=== PATIENT | female | born 1990 | race African-American/Black ===

== ENCOUNTER 2018-03-07 11:01 | Emergency (ER) | payer OTHER ==
[2018-03-07 11:13] VITALS: RESP 18
[2018-03-07] MEDS ORDERED: SODIUM CHLORIDE 0.9% 1,000 ML IV STA (11:36)
[2018-03-07] MEDS ORDERED: METOCLOPRAMIDE 5 MG/ML 2 ML VIAL IVP STA (11:36)
[2018-03-07] MEDS ORDERED: ACETAMINOPHEN TAB 500 MG TAB PO STA (11:36)
--- NOTE | 2018-03-07 11:45 | ED ---
Abdominal Pain HPI - General Chief Complaint: Abdominal Pain Stated Complaint: ABDOMINAL PAIN, Time Seen by Provider: 03/07/18 11:27 Source: patient Mode of arrival: ambulatory Limitations: no limitations - History of Present Illness Initial Comments: 27-year-old female patient presents to the emergency department today for evaluation of abdominal pain. Patient states that she is having pain that radiates from her midepigastric region down to her suprapubic region. States she's also been having sharp pains in her right upper quadrant. States tat she has lower back pain. States that she has been nauseated but has not vomited. Denies any constipation or diarrhea. Patient states that she did take a test at home and was positive. 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 Patient denies any abnormal vaginal bleeding or discharge. States that she felt feverish at work today. Denies any hematuria, dysuria, urinary frequency, urinary urgency. Patient denies any recent rash, shortness breath, chest pain, back pain, numbness, tingling, dizziness, weakness, headache, visual changes, or any other complaints. - Related Data Previous Rx's Medication Instructions Recorded Pnv No.95/Ferrous Fum/Folic AC 1 each PO DAILY #30 tablet 03/07/18 [ Multivitamin Tablet] Allergies Allergy/AdvReac Type Severity Reaction Status Date / Time ibuprofen [From Motrin] Allergy Nausea & Verified 03/07/18 11:10 Vomiting Review of Systems ROS Statement: Those systems with pertinent positive or pertinent negative responses have been documented in the HPI. ROS Other: All systems not noted in ROS Statement are negative. Past Medical History Past Medical History: No Reported History History of Any Multi-Drug Resistant Organisms: None Reported Past Surgical History: No Surgical Hx Reported Past Psychological History: No Psychological Hx Reported Smoking Status: Current every day smoker Past Alcohol Use History: None Reported, Occasional Past Drug Use History: None Reported General Exam Limitations: no limitations General appearance: alert, in no apparent distress, other (Physical well- developed, well-nourished adult female patient in no acute distress. Vital signs upon presentation are temperature 99.1F, pulse 90, respirations 18, blood pressure 153/76, pulse ox 100% on room air.) Eye exam: Present: normal appearance, PERRL, EOMI. Absent: scleral icterus, conjunctival injection, periorbital swelling ENT exam: Present: normal exam, normal oropharynx, mucous membranes moist Respiratory exam: Present: normal lung sounds bilaterally. Absent: respiratory distress, wheezes, rales, rhonchi, stridor Cardiovascular Exam: Present: regular rate, normal rhythm, normal heart sounds. Absent: systolic murmur, diastolic murmur, rubs, gallop, clicks GI/Abdominal exam: Present: soft, tenderness (Generalized abdominal Tenderness, worse over the midepigastric, right upper quadrant, and suprapubic region.), normal bowel sounds. Absent: distended, guarding, rebound, rigid Back exam: Present: normal inspection. Absent: CVA tenderness (R), CVA tenderness (L) Neurological exam: Present: alert, oriented X3, CN II-XII intact Psychiatric exam: Present: normal affect, normal mood Skin exam: Present: warm, dry, intact, normal color. Absent: rash Course Vital Signs 03/07/18 03/07/18 03/07/18 11:10 13:10 13:25 Temperature 99.1 F 98.6 F Pulse Rate 90 55 L Respiratory 18 18 Rate Blood Pressure 153/76 133/70 O2 Sat by Pulse 100 98 Oximetry Medical Decision Making - Medical Decision Making 27-year-old female patient presented to the emergency department today for evaluation of generalized abdominal pain. She is concerned because she did have a positive test at home. Physical examination did reveal generalized abdominal tenderness. Labs reviewed and showed a mild white blood cell count elevation of 11.8. Other labs are unremarkable. HCG was 15,751. Ultrasound showed intrauterine measuring 5 weeks 1 day. Currently no heart beat was identified. The patient is not having any vaginal bleeding or discharge at this time. Patient is feeling better upon reevaluation and does feel comfortable being discharged home. She is instructed to follow-up with OB/ [facility]LEMENT[facility] DIRECTOR for reevaluation as soon as possible. She is given a prescription for vitamins. Return parameters discussed in detail. She verbalizes understanding and agreed with this plan. - Lab Data Result diagrams: 03/07/18 11:57 03/07/18 11:57 Lab Results 03/07/18 03/07/18 03/07/18 Range/Units 11:57 11:57 11:57 WBC 11.8 H (3.8-10.6) k/uL RBC 4.80 (3.80-5.40) m/uL Hgb 13.6 (11.4-16.0) gm/dL Hct 42.2 (34.0-46.0) % MCV 87.9 (80.0-100.0) fL MCH 28.3 (25.0-35.0) pg MCHC 32.2 (31.0-37.0) g/dL RDW 14.7 (11.5-15.5) % Plt Count 153 (150-450) k/uL Neutrophils % 74 % Lymphocytes % 21 % Monocytes % 2 % Eosinophils % 2 % Basophils % 0 % Neutrophils # 8.7 H (1.3-7.7) k/uL Lymphocytes # 2.5 (1.0-4.8) k/uL Monocytes # 0.3 (0-1.0) k/uL Eosinophils # 0.2 (0-0.7) k/uL Basophils # 0.0 (0-0.2) k/uL Sodium 140 (137-145) mmol/L Potassium 3.9 (3.5-5.1) mmol/L Chloride 112 H (98-107) mmol/L Carbon Dioxide 21 L (22-30) mmol/L Anion Gap 7 mmol/L BUN 6 L (7-17) mg/dL Creatinine 0.50 L (0.52-1.04) mg/dL Est GFR (CKD-EPI)AfAm >90 (>60 ml/min/1.73 sqM) Est GFR (CKD-EPI)NonAf >90 (>60 ml/min/1.73 sqM) Glucose 91 (74-99) mg/dL Calcium 9.0 (8.4-10.2) mg/dL Total Bilirubin 0.2 (0.2-1.3) mg/dL AST 17 (14-36) U/L ALT 27 (9-52) U/L Alkaline Phosphatase 80 (38-126) U/L Total Protein 6.6 (6.3-8.2) g/dL Albumin 3.7 (3.5-5.0) g/dL Amylase 50 (30-110) U/L Lipase 69 (23-300) U/L HCG, Quant 94008.3 mIU/mL Urine Color Yellow Urine Appearance Cloudy H (Clear) Urine pH 6.0 (5.0-8.0) Ur Specific [place] 1.016 (1.001-1.035) Urine Protein 1+ H (Negative) Urine Glucose (UA) Negative (Negative) Urine Ketones Negative (Negative) Urine Blood Small H (Negative) Urine Nitrite Negative (Negative) Urine Bilirubin Negative (Negative) Urine Urobilinogen <2.0 (<2.0) mg/dL Ur Leukocyte Esterase Trace H (Negative) Urine RBC 1 (0-5) /hpf Urine WBC 2 (0-5) /hpf Ur Squamous Epith Cells 10 H (0-4) /hpf Urine Mucus Occasional H (None) /hpf Disposition Clinical Impression: Abdominal pain during Disposition: HOME SELF-CARE Condition: Good Instructions: Abdominal Pain in (ED) Additional Instructions: Increase fluids. Take vitamins as directed. Follow-up with [facility] as soon as possible. Return here immediately for any new, worsening, or concerning symptoms. Prescriptions: Pnv No.95/Ferrous Fum/Folic AC [ Multivitamin Tablet] 1 each PO DAILY # 30 tablet Is patient prescribed a controlled substance at d/c from ED?: No Referrals: Kar Bang MD [Primary Care Provider] - 1-2 days Daniela Butler DO [Doctor of Osteopathic Medicine] - 1-2 days Time of Disposition: 13:11
[2018-03-07 12:08] LABS: Basophils % (A) 0 %; Eosinophils # (A) 0.2 k/uL (0-0.7); Eosinophils % (A) 2 %; HCT 42.2 % (34.0-46.0); HGB 13.6 gm/dL (11.4-16.0); Lymphocytes # (A) 2.5 k/uL (1.0-4.8); Lymphocytes % (A) 21 %; MCH 28.3 pg (25.0-35.0); MCHC 32.2 g/dL (31.0-37.0); MCV 87.9 fL (80.0-100.0); Mean Platelet Volume 8.8; Monocytes # (A) 0.3 k/uL (0-1.0); Monocytes % (A) 2 %; Neutrophils # (A) 8.7 k/uL (1.3-7.7); Neutrophils % (A) 74 %; Platelet Count 153 k/uL (150-450); RDW 14.7 % (11.5-15.5); WBC 11.8 k/uL (3.8-10.6)
[2018-03-07 12:10] LABS: Appearance,Urine Cloudy (Clear); Bilirubin,Urine Negative (Negative); Blood,Urine Small (Negative); Color,Urine Yellow; Glucose,Urine (UA) Negative (Negative); Ketones,Urine Negative (Negative); Leukocyte Esterase,Urine Trace (Negative); Mucus,Urine Occasional /hpf; Nitrite,Urine Negative (Negative); Protein,Urine 1+ (Negative); RBC,Urine 1 /hpf (0-5); Specific Gravity,Urine 1.016 (1.001-1.035); Squamous Epithelial Cell,Urine 10 /hpf (0-4); Urobilinogen,Urine <2.0 mg/dL (<2.0); WBC,Urine 2 /hpf (0-5)
[2018-03-07 12:17] LABS: ALT 27 U/L (9-52); AST 17 U/L (14-36); Albumin 3.7 g/dL (3.5-5.0); Alkaline Phosphatase 80 U/L (38-126); Amylase 50 U/L (30-110); Anion Gap 7 mmol/L; Blood Urea Nitrogen 6 mg/dL (7-17); Carbon Dioxide 21 mmol/L (22-30); Chloride 112 mmol/L (98-107); Glucose 91 mg/dL (74-99); Lipase 69 U/L (23-300); Potassium 3.9 mmol/L (3.5-5.1); Sodium 140 mmol/L (137-145); Total Bilirubin 0.2 mg/dL (0.2-1.3); Total Protein 6.6 g/dL (6.3-8.2)
--- NOTE | 2018-03-07 12:59 | US ---
EXAMINATION TYPE: Transabdominal DATE OF EXAM: 11/10/17 COMPARISON: NONE CLINICAL HISTORY: Pain. early OB, pelvic pain, more so on the right, G9, P1 EXAM PERFORMED: OBTA and OBTV EXAM MEASUREMENTS: GESTATIONAL AGE / DATING Physician Established: Not yet established Dates by LMP: (4 weeks/4 days) EDC: 11/10/2018 Dates by First Scan: No previous this is first scan Dates by Current Scan for: (5 weeks/1 days) EDC: 11/06/2018 MATERNAL ANATOMY Uterus: 10.0 x 6.5 x 5.0 Right Ovary: 4.9 x 3.4 x 2.7 Left Ovary: 2.6 x 1.7 x 1.9 Post CDS / Adnexa: free fluid with internal debris seen at bilateral adnexa Presence of free fluid: yes, with debris Presence of corpus luteal cyst: possible on the right = 2.2cm Presence of subchorionic bleed: no GESTATION / SURVEY CRL: not seen at today's exam MSD: 1.1cm (5 weeks/1 days) Yolk Sac (normal less than 6mm): 0.2cm IUP: gestation sac seen within fundus of uterus, containing a yolk sac Date of LMP: 02/03/2018 Beta HcG (if available): pending IMPRESSION: Probable early gestation with a mean gestational age of 5 weeks 1 day +/- 5 days. Short-term follow-u p +/- serial beta hCGs would BE suggested. No pole or heart rate was detected today.
[2018-03-07 13:02] LABS: HCG,Quantitative Serum 15751.3 mIU/mL
[2018-03-07 13:12] VITALS: BP 133/70; PULSE 55
[2018-03-07 13:26] VITALS: TEMP 98.6
== END 2018-03-07 13:25 | disposition home or self-care (01) ==
LOC: EC 11:01
DX: O99.89 Other specified diseases and conditions complicating pregnancy, childbirth and the puerperium (principal); R10.13 Epigastric pain; R10.11 Right upper quadrant pain; R10.30 Lower abdominal pain, unspecified; O99.111 Other diseases of the blood and blood-forming organs and certain disorders involving the immune mechanism complicating pregnancy, first trimester; D72.829 Elevated white blood cell count, unspecified; M54.5 Low back pain; R50.9 Fever, unspecified; O99.331 Smoking (tobacco) complicating pregnancy, first trimester; F17.200 Nicotine dependence, unspecified, uncomplicated; Z88.6 Allergy status to analgesic agent; Z3A.01 Less than 8 weeks gestation of pregnancy
CPT/HCPCS: 36415; 80053; 82150; 83690; 85025; 81001; 84702; 87086; 76801; 76817; 99284; 96374; 96361; J2765

== ENCOUNTER → 2018-06-07 | Outpatient (CLI) | payer OTHER ==
--- NOTE | 2018-06-08 07:29 | US ---
EXAMINATION TYPE: US OB anatomy transabd DATE OF EXAM: 06/07/2018 COMPARISON: HISTORY: Z34.80 supervision of other normal Anatomy TECHNIQUE: Transabdominal (TA) EXAM MEASUREMENTS: GESTATIONAL AGE / DATING Dates by LMP: (18 weeks/1 days) EDC: 11/07/2018 Dates by Current Scan for: (20 weeks/0 days) EDC: 10/25/2018 SURVEY IUP: Single PLACENTA: Posterior/Fundal PREVIA: No previa JOSE FRANCISCO: 16.2 cm Normal CERVICAL LENGTH (transabdominal: norm > 3.0cm): 4.5 cm BIOMETRY PRESENTATION: Vertex BPD: 4.7 cm 20 weeks / 2 days HC: 17.0 cm 19 weeks / 5 days AC: 14.4 cm 19 weeks / 6 days FL: 3.2 cm 20 weeks / 2 days ESTIMATED WEIGHT IN GRAMS: 316 grams ESTIMATED WEIGHT IN LBS/OZ: 0 lbs. 11 oz. WEIGHT PERCENTAGE BASED ON ESTABLISHED DATE: 98 % HC/AC: 1.2 Normal FL/AC: 22% HEART RATE: 152 bpm RHYTHM: Normal ANATOMY SEEN (within normal limits): * Lateral Vent (< 1 cm) 0.5 cm * Cisterna Magna (< 1.1 cm) 0.3 cm * Nuchal Fold (< 0.6 cm) 03 cm * Cerebellum (varies with age) 2.0 cm Choroid Plexus (bilateral) Midline Falx Cavus Septi Pellucidi Four Chamber Heart Outflow tracts: LVOT/RVOT Stomach Situs Nose / Lips Diaphragm Kidneys (bilateral) Bladder Cord Insert Three Vessel Cord Longitudinal Spine Transverse Spine Arms (bilateral) Legs (bilateral) ANATOMY SEEN (does not appear within normal limits): ANATOMY NOT SEEN: Single live IUP measuring 20 weeks 0 days IMPRESSION: Single live intrauterine with a sonographic age of 20 weeks and 0 days, discord ant with menstrual age. Heart rate is within normal limits as is the visualized above anatomy. Weight percentage based on established dates is 98%.
== END ==
LOC: RADUSWWP 16:22
PROVIDERS: ATTEND Obstetrics & Gynecology
DX: Z34.80 Encounter for supervision of other normal pregnancy, unspecified trimester (principal); Z3A.20 20 weeks gestation of pregnancy
CPT/HCPCS: 76811

== ENCOUNTER → 2018-09-13 | Outpatient (CLI) | payer OTHER ==
--- NOTE | 2018-09-14 11:36 | US ---
EXAMINATION TYPE: US OB >= 14 wk fetus DATE OF EXAM: 09/13/2018 COMPARISON:06/07/2018 CLINICAL HISTORY: Z34.80 SUPERVISION OF NORMAL TECHNIQUE: Transabdominal (TA) GESTATIONAL AGE / DATING Physician Established: (34 weeks/0 days) EDC: Dates by LMP: patient unsure at this time Dates by First Scan: (34 weeks/0 days) EDC: 10/25/2018 Dates by Current Scan: (33 weeks/5 days) EDC: 10/27/2018 SURVEY IUP: Single PLACENTA: Fundal PREVIA: No Previa JOSE FRANCISCO: 10.0 cm Normal CERVICAL LENGTH (transabdominal: norm > 3.0cm): 3.5 cm Cervix not well seen, discussed Transvaginal with patient she wants to wait and see if Doctor feels it is necessary BIOMETRY PRESENTATION: Vertex LIE: Oblique BPD: 8.8 cm 35 weeks / 5 days HC: 31.3 cm 35 weeks / 1 days AC: 29.9 cm 33 weeks / 6 days FL: 6.4 cm 32 weeks / 6 days ESTIMATED WEIGHT IN GRAMS: 2296 grams ESTIMATED WEIGHT IN LBS/OZ: 5 lbs. 1 oz. WEIGHT PERCENTAGE BASED ON ESTABLISHED DATES: 39% HC/AC: 1.1 Normal FL/AC: 21.4 Normal HEART RATE: 137 bpm RHYTHM: Normal growth parameters wnl IMPRESSION: 1. Single intrauterine gestation estimated at 33 weeks 5 days gestation based on current ultrasound m easurements. This would have a calculated EDC of 10/27/2018. 2. Cardiac activity measures 137 bpm.
== END | disposition home or self-care (01) ==
LOC: RADUSWWP 16:21
PROVIDERS: ATTEND Obstetrics & Gynecology
DX: Z36.9 Encounter for antenatal screening, unspecified (principal)
CPT/HCPCS: 76805